=== PATIENT | male | born 1950 | race Caucasian/White ===

== ENCOUNTER → 2016-12-03 | Day surgery (SDC) | payer OTHER ==
[~2016-12-03] MED LIST: ATENOLOL25 MG PO; ATIVAN PO; CLONIDINE PO; COLCHICINE0.6 M1; DESYREL50 MG; GABAPENTIN300 M2 PO; MULTI VITAMIN1 EACH PO; NORCO 7.5-3251 EACH PO; ZYLOPRIM100 MG PO
--- NOTE | ~2016-12-03 | OR ---
Unit #: [id number] #: [id number] Patient: JIMENA DUMONT [id number] [address] [place], [place] [address] [id number] MR#: [id number] NAME: JIMENA DUMONT ROOM: Date of Procedure: 12/03/2016 Admission Date: 12/03/2016 Surgeon: Blayne Chirinos Jr., M.D. : 1950 Attending Physician: Blayne Chirinos Jr., M.D. Primary Care Physician: Primary Care Physician No OPERATIVE REPORT INDICATIONS FOR PROCEDURE The patient is a 66-year-old white male, recently presented to the office complaining of a mass of the left elbow, which was firm and causing pain at times when he bumped it as well as a small skin lesion, possibly a skin cancer of the dorsum of his left hand. He is brought in this time for removal of both these lesions. He understands the procedure including the risks, including that of recurrence, and infection and poor healing, and nerve injury, and consents. PREOPERATIVE DIAGNOSIS Cystic mass of the left elbow and a small skin lesion of the dorsum of the left hand, rule out cancer. POSTOPERATIVE DIAGNOSIS Cystic mass of the left elbow and a small skin lesion of the dorsum of the left hand, rule out cancer. ANESTHESIA General with LMA and 0.5% Marcaine with epinephrine locally. PROCEDURE PERFORMED Excision of cystic lesion of the left elbow and skin lesion of the dorsum of the left hand. DESCRIPTION OF PROCEDURE The patient was positioned in the supine position. After being anesthetized, he was prepped and draped in routine fashion for removal of the 2 lesions as described above. 0.5% Marcaine with epinephrine was injected in the skin of the left elbow area, where the cyst was noted and an elliptical incision was made around the skin over the top of the cyst. This was carried down through subcutaneous tissue down to the wall of the cyst. The cyst was completely removed from the surrounding tissue and sent to pathology. Hemostasis was achieved with Bovie cautery. After the wound was irrigated, the deeper tissue was approximated with interrupted 3-0 Vicryl sutures. Skin edges approximated with stainless-steel skin clips and skin stapling device. The patient was then locally anesthetized with 0.5% Marcaine with epinephrine. In the area of the skin lesion, an elliptical incision was made around it length of a totally approximately 1 cm in length. This was done with a #15 blade scalpel. After the skin lesion was completely excised with good margins, hemostasis was achieved with Bovie cautery and the subcutaneous tissue approximated with separate 3-0 Vicryl sutures. Skin edges approximated with stainless-steel skin Unit #: [id number] #: [id number] Patient: JIMENA DUMONT clips and skin stapling device. Sterile dressings were applied in both wounds. Estimated blood loss minimal. No drains used. Less than 250 mL of fluid being given during the procedure and no complications. The patient was transported to recovery room with stable vital signs in satisfactory condition. Dictated by... Blayne Chirinos Jr., M.D. JMB/clay TD: 12/03/2016 13:55 JOB #: [id number] CC: Yehuda Inman M.D. OPERATIVE REPORT Page 1 of 1 X Blayne Chirinos MD X PROCEDURE OPERATIVE NOTE
--- NOTE | ~2016-12-03 | EKG ---
PATIENT: JIMENA DUMONT UNIT #: [id number] Ventricular Rate: 78 BPM Atrial Rate: 78 BPM P-R Interval: 140 ms QRS Duration: 86 ms Q-T Interval: 390 ms QTC Calculation(Bezet): 444 ms P Weston: 67 degrees Calculated R Weston: -45 degrees Calculated T Weston: 34 degrees Diagnosis Line: Normal sinus rhythm Diagnosis Line: Left anterior fascicular block Diagnosis Line: Abnormal ECG Diagnosis Line: No previous ECGs available Diagnosis Line: Confirmed by MARVIN GARCIA MD ([id number]) on Diagnosis Line: 12/03/2016 12:22:58 PM INTERPRETING MD: JOANNA
== END | disposition home or self-care (01) ==
LOC: CSUR 09:34
DX: M79.89 Other specified soft tissue disorders (principal); L57.0 Actinic keratosis; I10 Essential (primary) hypertension; J44.9 Chronic obstructive pulmonary disease, unspecified; M10.9 Gout, unspecified; M19.90 Unspecified osteoarthritis, unspecified site; F41.9 Anxiety disorder, unspecified; F17.210 Nicotine dependence, cigarettes, uncomplicated; Z79.891 Long term (current) use of opiate analgesic; Z79.899 Other long term (current) drug therapy
CPT/HCPCS: 88305; 93005; J2250; J2405; J3010